=== PATIENT | female | born 1975 | race Caucasian/White ===

== ENCOUNTER 2023-11-02 10:42 | Outpatient (CLI) | payer MEDICAID, SELFPAY ==
--- NOTE | 2023-11-02 11:09 | XR_ITS ---
FINAL REPORT CLINICAL HISTORY: PAST SMOKER preop COMPARISON: None FINDINGS: Two views of the chest were obtained. The heart size and pulmonary vascularity are within normal limits. The mediastinum is normal. No acute pulmonary abnormality is identified. There is no pneumothorax. The bony thorax is intact. IMPRESSION: No active cardiopulmonary disease. Reviewed, Interpreted and Dictated by Hemant Gardner III, MD Transcribed by Luanne Arthur Authenticated and [facility]
[2023-11-02 11:26] LABS: Basophils % 0.9 % (0.1-2.0); Eosinophils # 0.1 K/mm3 (0.0-0.4); Hematocrit 43.2 % (37.0-47.0); Hemoglobin 13.9 g/dL (12.2-16.2); Lymphocytes # 1.3 K/mm3 (0.7-4.5); Lymphocytes % 35.6 % (10-50); Mean Corpuscular HGB Conc 32.1 g/dL (31.8-35.4); Mean Corpuscular Hemoglobin 29.8 pg (27.0-31.2); Mean Corpuscular Volume 92.7 fl (81-99); Mean Platelet Volume 7.7 fl (7.4-10.4); Monocytes # 0.2 K/mm3 (0.1-1.0); Neutrophils % 54.5 % (37.0-80.0); Platelet Count 211 K/mm3 (142-424); Red Blood Count 4.66 M/mm3 (4.20-5.40); Red Cell Distribution Width 14.5 % (11.5-17.5); White Blood Count 3.6 K/mm3 (4.8-10.8)
--- NOTE | 2023-11-02 11:30 | ECG_ITS ---
APPROVED REPORT Exam: Resting ECG HR:76 bpm ECG Measurements Heart Rate 76 AXES WV 135 P 31 QRSd 92 QRS 64 QT 358 T 24 QTc 389 Conclusion SINUS RHYTHM LOW QRS VOLTAGE IN PRECORDIAL LEADS [QRS DEFLECTION < 1.0 mV IN CHEST LEADS] BORDERLINE ECG UNCONFIRMED REPORT Electronically signed by : Jesus Freeman MD 11/06/2023 12:26:21
[2023-11-02 12:01] LABS: Chloride 110 mmol/L (98-107); Potassium 4.6 mmoL/L (3.5-5.1); Sodium 139 mmol/L (136-145)
[2023-11-02 12:03] LABS: Alanine Aminotransferase 29 U/L (12-78); Alkaline Phosphatase 126 U/L (38-126); Aspartate Amino Transferase 42 U/L (14-36); Bilirubin,Total 0.6 mg/dl (0.2-1.3); Blood Urea Nitrogen 10 mg/dl (7-17); Estimated Glomerular Filt Rate 106 ml/min (>60); GFR (African American) 128 ML/MIN (>60)
[2023-11-02 12:04] LABS: Albumin Level 3.7 g/dl (3.5-5.0); Anion Gap 12.6 mEq/L (5-15); Calcium 9.1 mg/dl (8.4-10.2); Carbon Dioxide 21 mmol/L (22.0-30.0); Globulin 3.7 g/dL (1.3-3.2); Glucose 89 mg/dl (74-100); Total Protein,Serum 7.4 g/dl (6.3-8.2)
== END 2023-11-02 23:59 | disposition home or self-care (01) ==
LOC: LAB 10:46
PROVIDERS: PCP Social Worker; Visit Provider Podiatrist
DX: Z01.818 Encounter for other preprocedural examination (principal); M20.11 Hallux valgus (acquired), right foot; Z79.899 Other long term (current) drug therapy
CPT/HCPCS: 36415; 71046; 80053; 85025; 93005

== ENCOUNTER 2023-11-06 07:10 | Day surgery (SDC) | payer MEDICAID, SELFPAY ==
[2023-11-06] VITALS (9 sets, daily range): BP systolic 97–122; BP diastolic 70–81; PULSE 63–99; RESP 14–18; TEMP 36.1–36.8; O2SAT 93–99; BMI 26.9
[2023-11-06] MEDS: LACTATED RINGERS 1000ML 1,000 ML 25 ML IV (08:13)
--- NOTE | 2023-11-06 09:05 | EXP.ANES.CKL ---
[facility] Disclaimer: The information contained in this section may have been updated after the patient was seen, as this information can be updated by other users. Medical History Strabismus Bipolar 1 disorder, depressed Cirrhosis Asthma Celiac disease Surgical History History of pubovaginal sling History of hysterectomy History of tonsillectomy Hx laparoscopic cholecystectomy Hx of breast reduction, elective Family History (Updated 11/06/23 @ 07:55 by Mary Grace Armenta RN) Other Cancer Family history of COPD (chronic obstructive pulmonary disease) Family history of hyperlipidemia Family history of hypertension Family history of myocardial infarction Social History Smoking Status: Former smoker alcohol intake: never substance use type: denies use current occupational status: other Travel in the last 8 weeks: None [facility] Anesthesia Checklist Patient Identification Patient Identification: Arm Band Structural Data Admitted From: Home Planned Operative Procedure/s: Right Lapidus Bunionectomy Consent for Planned Operative Procedure(s) Verified: Yes Verified Documents: Surgical Consent and History and Physical NPO Status Verified Time NPO: 00:00 Additional verifications Anesthesia Reactions: Yes (patients states her brain was awake but couldnt move body) Hx Blood Transfusions: No Blood Transfusion Reaction: No Airway Assessment Mallampati Score:: Class I C-Spine Mobility Assessed: Yes TMJ Mobility Assessed: Yes Dentition: Good Dentition Neurological Assessment Level of Consciousness: Awake, Alert and Appropriate Anesthesia Plan Anesthesia Risk discussed: Yes Anesthesia Plan: Verified ASA Class: III Anesthesia Type: General w/block (Right Popliteal/Adductor Canal Nerve Block. Risks/benefits explained. Pt verbalized understanding)
[2023-11-06] MEDS: CLINDAMYCIN PHOSPHATE/D5W 900 MG/50 ML PIGGYBACK 100 MG (10:00)
--- NOTE | 2023-11-06 12:58 | EXP.OP.NOTE ---
Date of procedure: 11/06/23 Pre-op Diagnosis:: Right Foot Conditions: Severe Hallux Valgus deformity Hallux interphalangeus Plantar fasciitis Hammertoe deformities toes 2-5 Painful right toes/foot Post-op Diagnosis:: Same Procedure performed:: Right Foot Procedures: Lapidus fusion/ bunionectomy; Ana Osteotomy; Hammertoe correction toes 2, 3, 4, 5 Right Foot; Plantar fascia release Surgeon:: Larry Bowles DPM MEDICAL MANAGER:: Cameron Dominguez Anesthesia: GETA and other (Popliteal) Estimated blood loss (mL): 15 Clinical Note:: tourniquet for 120 minutes; released for 20 minutes; then raised for final skin closure 15 minutes. Operative findings:: Expected Operative note:: Patient was seen in the preop holding area. Discussion with the patient to confirm the planned procedure was performed and this foot was signed. All questions were answered to the patient's satisfaction. Also in presence of her , who will help manage all her post operative medications. Patient was then evaluated by anesthesia department: Popliteal nerve block was performed Patient was wheeled to the operative room and placed on the operating table in the supine position. The operative sites were clearly marked and then prepped and draped in the usual aseptic manner. Timeout was performed in the room and we confirmed the planned procedures and the patient and we all were in agreement. The attention was directed to the patient's surgical foot and Esmarch bandage used to extended patient's foot and ankle and the tourniquet inflated to 250 mils mercury about the malleoli. LAPIDUS: A dorsal linear longitudinal incision was made from the metatarsal cuneiform joint following and medial with the extensor hallucis longus tendon to the dorsal aspect of the proximal hallux. Incision was deepened to subcutaneous tissues being careful to preserve protect vital neurovascular structures and bleeders cauterized with the Bovie as necessary. Attention was directed to the first metatarsal phalangeal joint where a dorsal linear longitudinal capsulotomy was made medial and parallel with the extensor hallucis longus tendon. The medial eminence and dorsal head of the first metatarsal were remodeled with sagittal bone saw. At this point blunt and sharp dissection was carried down to the first interspace and the fibular sesamoid was freed of soft tissue attachments and performed a medial capsuloraphy.. There was good range of motion noted at the first MPJ at this level. Attention now was directed to the metatarsal cuneiform joint which was dissected down to the joint capsule and freed of soft tissue attachments. Sagittal bone saw was used to resect portion of the metatarsal cunifeiform joint carl[place] and bone in the multiple planes. At this point the base of the metatarsal and the cuneiform were placed in proximity to each other with bleeding sides in a corrected position and fixation was accomplished using a cannulated screw and a staple. Also used bone graft at fusion site and had perforated bone fusion sites proximal and distal. ([place] 18mm staple; 4mm x 28mm cannulated screw; bone graft) ANA: Attention directed to Proximal hallux; and Ana osteotomy performed with wedge medially placed; bone graft between bone surgical site, fixated and reduced with Staple. ([place] 10mm) There is good alignment noted for the entire correction of the procedure and it was deemed to be appropriate for closure so irrigated the wound with copious amount of sterile normal saline and then closed in layers with 2-0 Vicryl 3-0 Vicryl and 3-0 nylon. HAMMERTOE CORRECTIONS: Right 2nd Digit PIPJ AD: Attention directed to dorsal right 2nd toe, where a dorsal linear incision was mapped out over the PIPJ extending distally over the DIPJ. Dissection was carried thru skin and sub q tissue, with care to maintain surgical hemostasis. Transverse tenotomy performed at the PIPJ, with release of the medial and lateral collateral ligaments. The head of the proximal was removed, exposing good cancellous bone. K wire driven through shaft of middle phalanx out distal tuft; then retrograde through shaft of proximal phalanx into metatarsal. Right 3rd Digit PIPJ AD: Attention directed to dorsal right 3rd toe, where a dorsal linear incision was mapped out over the PIPJ extending distally over the DIPJ. Dissection was carried thru skin and sub q tissue, with care to maintain surgical hemostasis. Transverse tenotomy performed at the PIPJ, with release of the medial and lateral collateral ligaments. The head of the proximal was removed, exposing good cancellous bone. K wire driven through shaft of middle phalanx out distal tuft; then retrograde through shaft of proximal phalanx into metatarsal. Right 4th Digit PIPJ AD: Attention directed to dorsal right 4th toe, where a dorsal linear incision was mapped out over the PIPJ extending distally over the DIPJ. Dissection was carried thru skin and sub q tissue, with care to maintain surgical hemostasis. Transverse tenotomy performed at the PIPJ, with release of the medial and lateral collateral ligaments. The head of the proximal was removed, exposing good cancellous bone. K wire driven through shaft of middle phalanx out distal tuft; then retrograde through shaft of proximal phalanx into metatarsal. Right 5th Digit PIPJ AD: Attention directed to dorsal right 5th toe, where two converging semi-elliptical incisions were mapped out over the PIPJ. Dissection was carried thru skin and sub q tissue, with care to maintain surgical hemostasis. Transverse tenotomy performed at the PIPJ, with release of the medial and lateral collateral ligaments. The head of the proximal was removed, exposing good cancellous bone. All digits were closed in layers, from 2nd to 5th toes, using 3-0 Vicryl on tendon and subcutaneous tissues; and 3-0 Nylon for skin tissue. Attention was directed to the medial aspect of the patient's heel and a linear incision was made in line with the plantar fascial attachment using a scalpel blade. Incision was then deepened through subcutaneous tissues with blunt and sharp dissection being careful to preserve and protect vital neural and vascular structures. A tissue plane interval was then created from medial to lateral the subcutaneous fat from the plantar fascia and the plantar fascia from the intrinsic musculature above. Ligament was noted to be friable and weak, and partially torn already. At this point released the plantar fascia medial and central bands with Felix scissors and the release of the tension was noted. Irrigated with copious bouts of sterile normal saline; and then closed the wound with 2-0 Vicryl and 2-0 nylon in mattress suture technique. Dressed the surgical wounds with Xeroform. Then applied gauze and 4 x 4's Kerlix and an ABD bandage. Posterior splint: Decision was to apply a well-padded posterior splint using [place], Cast padding, 4 Orthoblast, and outer 4-6 elastic bandage, holding the foot at 90 degrees. Discharge/Plan: D/C home today when ready and vital signs stable. Patient is to maintain dressing clean dry and intact. Ice to the top of the foot and elevate on two pillows. Non weight bearing to the [right] lower extremity with DME assistance (crutches, walker, rolling knee scooter). Rx for Percocet 7.5 given, Ibuprofen 800mg, Phenergan 12.5mg Obtain post op films, [right] foot, 3 views. Follow up in one week. Tourniquet time (min): 120 Condition: stable Disposition: PACU Specimens:: negative Complications:: none.
[2023-11-06] MEDS: diphenhydrAMINE 25MG CAPSULE 25 MG PO (13:37)
--- NOTE | 2023-11-06 13:41 | SUR.PHASEII ---
PT NOTED TO HAVE A RED RASH MID CHEST EXTENDING OVER TO L AXILLARY. NO ITCHING, NOT RAISED. DR. BRITTON AT BEDSIDE AND ORDERED BENEDRYL 25MG PO.
--- NOTE | 2023-11-06 13:50 | SUR.PHASEII ---
DR BRITTON DISCONTINUED CEPHALEXIN D/T PCN ALLERGY AND REPLACED WITH DOXYCYCLINE. CLINIC PHARMACY NOTIFIED TO NOT FILL CEPHALEXIN..
--- NOTE | 2023-11-06 13:51 | EXP.ANES.I ---
[facility] Anesthesia Record Part I Anesthesia Record I Intake, IV Amount: 900 Hydration: Adequate Estimated blood loss (mL): 0 Urine output (mL): 0 Blood Products used (#): none Blood Pressure: 107/81 SaO2: 95 Pulse Rate: 99 Airway Patency: Patent Respiratory Rate: 14 Temperature: 98.3 F Patient is:: Drowsy and Stable Stable to PACU at:: 12:47
--- NOTE | 2023-11-10 07:30 | EXP.ANES.II ---
[facility] Anesthesia Record Part II Anesthesia Record Part II Discharge Time: 13:17 Destination: Surgical Day Care (OP Surgery) PACU nurse assessment reviewed?: Yes Patient Condition:: Good Anesthesia Complications:: None Swallowing reflex intact?: Yes Airway Patency: Patent Cyanosis?: No Blood Pressure: 108/74 SaO2: 96 Respiratory Rate: 16 Pulse Rate: 80 Temperature: 97.8 F Mental Status: Alert & Oriented Pain level:: 0 Nausea and/or vomitting:: None Intake, IV Amount: 0 Hydration: Adequate
[2023-11-10 07:31] VITALS: BP 108/74; PULSE 80; RESP 16; TEMP 36.6; O2SAT 96
== END 2023-11-06 14:06 | disposition home or self-care (01) ==
PROVIDERS: PCP Social Worker; Visit Provider Podiatrist
PROC: (CPT 28297; principal; 2023-11-06 09:15)
DX: M20.11 Hallux valgus (acquired), right foot (principal); M20.41 Other hammer toe(s) (acquired), right foot; M20.5X1 Other deformities of toe(s) (acquired), right foot; Z79.899 Other long term (current) drug therapy
CPT/HCPCS: 28297; 28060; 28285; 96374; C1713; J2405